=== PATIENT | female | born 1935 | race Caucasian/White ===

== ENCOUNTER 2018-01-10 10:05 | Inpatient (IN) | payer MEDICARE ==
[2018-01-10] MEDS ORDERED: SODIUM CHLORIDE 0.9% 1,000 ML IV STA ×3 (10:15→11:07)
[2018-01-10] MEDS ORDERED: PANTOPRAZOLE 40 MG/10 ML VIAL IVP STA (10:15)
--- NOTE | 2018-01-10 10:20 | ED ---
General Adult HPI - General Stated complaint: altered mental status Time Seen by Provider: 01/10/18 10:07 Source: patient, EMS, RN notes reviewed Mode of arrival: EMS Limitations: altered mental status, physical limitation - History of Present Illness Initial comments: Patient is a pleasant 82-year-old female presenting to the emergency department by EMS for concerns for GI bleed. Patient reportedly has not gotten up and past several days and has not been talking much. Patient has been having rectal bleeding. Patient is also been vomiting. Patient is a very poor historian. Patient does admit to having some abdominal discomfort and vomiting. Patient is unable to describe type vomit. Patient is unaware of any rectal bleeding. Patient is unclear if her abdomen is distended or not. - Related Data Home Medications Medication Instructions Recorded Confirmed No Known Home Medications 01/10/18 01/10/18 Allergies Allergy/AdvReac Type Severity Reaction Status Date / Time No Known Allergies Allergy Unverified 01/10/18 11:15 Review of Systems ROS Statement: Those systems with pertinent positive or pertinent negative responses have been documented in the HPI. ROS Other: All systems not noted in ROS Statement are negative. Limitations: ROS unobtainable due to patients medical condition Gastrointestinal: Reports: abdominal pain, vomiting, hematochezia Past Medical History Past Medical History: Unable to Obtain Past Surgical History: Unable to Obtain Past Drug Use History: None Reported General Exam Limitations: altered mental status General appearance: alert, other (Appearance of black emesis around the mouth and on the shirt) Head exam: Present: atraumatic Eye exam: Present: other (Pale conjunctivae) ENT exam: Present: mucous membranes dry Neck exam: Present: normal inspection Respiratory exam: Present: normal lung sounds bilaterally Cardiovascular Exam: Present: tachycardia, irregular rhythm GI/Abdominal exam: Present: distended, tenderness (Moderate diffuse tenderness) , guarding Rectal exam: Present: bloody stool, other (Patient does have skin breakdown and large hemorrhoid and gross blood present) Extremities exam: Present: normal inspection Neurological exam: Present: alert, altered Expanded Neurological exam: Present: protecting the airway Patient oriented to: Present: person. Absent: place, time Psychiatric exam: Present: normal mood Skin exam: Present: normal color Course Vital Signs 01/10/18 01/10/18 01/10/18 10:32 11:07 11:31 Temperature 100.1 F H Pulse Rate 174 H 171 H 160 H Respiratory 20 18 20 Rate Blood Pressure 101/67 83/68 104/51 O2 Sat by Pulse 97 95 95 Oximetry 01/10/18 01/10/18 12:30 13:00 Temperature 97 F L Pulse Rate 175 H 169 H Respiratory 18 22 Rate Blood Pressure 84/51 O2 Sat by Pulse 98 Oximetry - Reevaluation(s) Reevaluation #1: 01/10/18 13:22 Patient reevaluated and somewhat improved. Patient does have 3 nephews who are present. Family states patient would not want to be resuscitated. They feel patient should be DO NOT RESUSCITATE. Patient does meet sepsis criteria diagnosed at 1322. 01/10/18 13:25 Case was discussed with Dr. Harper, who will admit for hospital call. Surgery and critical care have been paged. 01/10/18 13:35 Case was discussed with Dr. Hair who will look at CT now and will consult on the patient. 01/10/18 14:02 Family was made aware of possible need for surgery and advised to have discussion regarding this. EKG Findings - EKG Comments: EKG Findings:: A. fib with RVR, rate 169. QRS 108. QT 274. QTC 459. Left axis. Normal QRS. Nonspecific ST-T. Procedures - Sepsis Sepsis Focused Exam #1 Time Sepsis Criteria Met: 13:22 Sepsis Focused Exam Date: 01/10/18 Sepsis Focused Exam Time: 14:01 Sepsis Focused Exam Complete: Yes Vital Signs & RN Notes Reviewed: Yes Capillary Refill: < 2 Seconds: Fingers, Toes Peripheral Pulses: Normal: Radial (R), Radial (L) Skin Color: Normal for Patient Respiratory Exam: normal lung sounds Cardiovascular Exam: tachycardia, irregular rhythm Medical Decision Making - Lab Data Result diagrams: 01/10/18 10:31 01/10/18 10:31 Lab Results 01/10/18 01/10/18 01/10/18 Range/Units 10:31 10:31 10:31 WBC 42.0 H* (3.8-10.6) k/uL RBC 4.15 (3.80-5.40) m/uL Hgb 11.1 L (11.4-16.0) gm/dL Hct 33.7 L (34.0-46.0) % MCV 81.1 (80.0-100.0) fL MCH 26.6 (25.0-35.0) pg MCHC 32.8 (31.0-37.0) g/dL RDW 15.4 (11.5-15.5) % Plt Count 242 (150-450) k/uL Neutrophils % (Manual) 88 % Band Neutrophils % 9 % Lymphocytes % (Manual) 3 % Monocytes % (Manual) 1 % Neutrophils # (Manual) 40.70 H (1.3-7.7) k/uL Lymphocytes # (Manual) 1.26 (1.0-4.8) k/uL Monocytes # (Manual) 0.42 (0-1.0) k/uL Nucleated RBCs 0 (0-0) /100 WBC Toxic Granulation Present Toxic Vacuolation Present Poikilocytosis (manual Present Anisocytosis (manual) Present PT (9.0-12.0) sec INR (<1.2) APTT (22.0-30.0) sec Sodium (137-145) mmol/L Potassium (3.5-5.1) mmol/L Chloride (98-107) mmol/L Carbon Dioxide (22-30) mmol/L Anion Gap mmol/L BUN (7-17) mg/dL Creatinine (0.52-1.04) mg/dL Est GFR (CKD-EPI)AfAm (>60 ml/min/1.73 sqM) Est GFR (CKD-EPI)NonAf (>60 ml/min/1.73 sqM) Glucose (74-99) mg/dL Calcium (8.4-10.2) mg/dL Total Bilirubin (0.2-1.3) mg/dL AST (14-36) U/L ALT (9-52) U/L Alkaline Phosphatase (38-126) U/L Ammonia 37 H (<30) umol/L Total Creatine Kinase 264 H (30-135) U/L CK-MB (CK-2) 2.5 H* (0.0-2.4) ng/mL CK-MB (CK-2) Rel Index 0.9 Troponin I 0.065 H* (0.000-0.034) ng/mL Total Protein (6.3-8.2) g/dL Albumin (3.5-5.0) g/dL 01/10/18 01/10/18 Range/Units 10:31 10:31 WBC (3.8-10.6) k/uL RBC (3.80-5.40) m/uL Hgb (11.4-16.0) gm/dL Hct (34.0-46.0) % MCV (80.0-100.0) fL MCH (25.0-35.0) pg MCHC (31.0-37.0) g/dL RDW (11.5-15.5) % Plt Count (150-450) k/uL Neutrophils % (Manual) % Band Neutrophils % % Lymphocytes % (Manual) % Monocytes % (Manual) % Neutrophils # (Manual) (1.3-7.7) k/uL Lymphocytes # (Manual) (1.0-4.8) k/uL Monocytes # (Manual) (0-1.0) k/uL Nucleated RBCs (0-0) /100 WBC Toxic Granulation Toxic Vacuolation Poikilocytosis (manual Anisocytosis (manual) PT 11.7 (9.0-12.0) sec INR 1.2 H (<1.2) APTT 25.9 (22.0-30.0) sec Sodium 141 (137-145) mmol/L Potassium 4.6 (3.5-5.1) mmol/L Chloride 111 H (98-107) mmol/L Carbon Dioxide 14 L (22-30) mmol/L Anion Gap 16 mmol/L BUN 94 H* (7-17) mg/dL Creatinine 6.17 H* (0.52-1.04) mg/dL Est GFR (CKD-EPI)AfAm 7 (>60 ml/min/1.73 sqM) Est GFR (CKD-EPI)NonAf 6 (>60 ml/min/1.73 sqM) Glucose 153 H (74-99) mg/dL Calcium 9.3 (8.4-10.2) mg/dL Total Bilirubin 0.9 (0.2-1.3) mg/dL AST 32 (14-36) U/L ALT 36 (9-52) U/L Alkaline Phosphatase 98 (38-126) U/L Ammonia (<30) umol/L Total Creatine Kinase (30-135) U/L CK-MB (CK-2) (0.0-2.4) ng/mL CK-MB (CK-2) Rel Index Troponin I (0.000-0.034) ng/mL Total Protein 5.8 L (6.3-8.2) g/dL Albumin 2.7 L (3.5-5.0) g/dL - Radiology Data Radiology results: image reviewed (Abdominal x-ray does show numerous dystrophic appearing calcifications in the pelvis. Chest x-ray shows likely right basilar atelectasis. Computed tomography scan of the abdomen and pelvis does have sigmoid diverticulitis with a small amount of free air. No evidence of abscess. Enlargement uterus with calcified mass likely leiomyoma. Bilateral iliac artery aneurysms.) Critical Care Time Critical Care Time: Yes Total Critical Care Time: 43 Disposition Clinical Impression: Acute renal failure (ARF), Perforation of sigmoid colon due to diverticulitis, Gastrointestinal hemorrhage, Atrial fibrillation, Septic shock Disposition: ADMITTED IP TO THIS [facility] Condition: Critical Is patient prescribed a controlled substance at d/c from ED?: No Referrals: None,Stated [Primary Care Provider] - 1-2 days Decision Time: 13:59
--- NOTE | 2018-01-10 11:02 | XR ---
EXAMINATION TYPE: XR chest 1V portable DATE OF EXAM: 01/10/2018 COMPARISON: NONE HISTORY: Weakness, GI bleed, abdominal pain and shortness of breath. TECHNIQUE: Single frontal view of the chest is obtained. FINDINGS: Right basilar airspace disease and right hemithorax volume loss are noted. Given the volum e loss findings are favored to represent atelectasis. Mediastinum is slightly rotated to the right se condary to patient positioning. No pulmonary vascular congestion, pneumothorax or pleural effusion. C ardiomediastinal silhouette is upper limits of normal. Mild multilevel degenerative changes of the th oracic spine and moderate of the shoulders are noted with diffuse osseous demineralization. IMPRESSION: Right basilar airspace disease with associated right hemithorax volume loss, therefore l ikely related to atelectasis. Pneumonia is possible in the appropriate clinical setting.
--- NOTE | 2018-01-10 11:04 | XR ---
EXAMINATION TYPE: XR abdomen 1V DATE OF EXAM: 01/10/2018 10:50 AM CLINICAL HISTORY: Generalized abdominal pain. TECHNIQUE: Single supine KUB image of the abdomen is obtained. COMPARISON: None. FINDINGS: There are large dystrophic calcifications in the pelvis with the most coarse measuring up t o 9.8 cm. Prominent air-filled loop of transverse colon measures up to 5.9 cm and is upper limits of normal but nondilated. No abnormal dilatation of small bowel is seen. Osseous structures are intact w ith mild degenerative changes of the lumbosacral junction and femoral acetabular joints. IMPRESSION: Numerous dystrophic appearing calcifications in the pelvis could relate to degenerative u terine leiomyomas. However the possibility of leiomyosarcoma or calcified retroperitoneal sarcoma is possible and nonemergent enhanced CT abdomen/pelvis is recommended for further evaluation. Nonobstruc tive bowel gas pattern.
[2018-01-10 11:05] LABS: HCT 33.7 % (34.0-46.0); HGB 11.1 gm/dL (11.4-16.0); MCH 26.6 pg (25.0-35.0); MCHC 32.8 g/dL (31.0-37.0); MCV 81.1 fL (80.0-100.0); Mean Platelet Volume 7.8; Platelet Count 242 k/uL (150-450); RBC 4.15 m/uL (3.80-5.40); RDW 15.4 % (11.5-15.5)
[2018-01-10 11:10] LABS: INR 1.2 (<1.2); Partial Thromboplastin Time 25.9 sec (22.0-30.0); Prothrombin Time 11.7 sec (9.0-12.0)
[2018-01-10 11:22] LABS: Albumin 2.7 g/dL (3.5-5.0); Calcium 9.3 mg/dL (8.4-10.2); Potassium 4.6 mmol/L (3.5-5.1); Total Bilirubin 0.9 mg/dL (0.2-1.3); Total Protein 5.8 g/dL (6.3-8.2)
[2018-01-10 11:44] LABS: Band Neutrophils % 9 %; Lymphocytes # (M) 1.26 k/uL (1.0-4.8); Monocytes # (M) 0.42 k/uL (0-1.0); Neutrophils % (M) 88 %; Nucleated Red Blood Cells 0 /100 WBC (0-0); Total Cells Counted 200; Toxic Granulation Present; Toxic Vacuolation Present
[2018-01-10 11:45] LABS: Anisocytosis (M) Present; Poikilocytosis (M) Present
[2018-01-10 11:50] LABS: Creatine Kinase MB 2.5 ng/mL (0.0-2.4); Troponin I 0.065 ng/mL (0.000-0.034)
[2018-01-10] MEDS ORDERED: SODIUM CHLORIDE 0.9% 500 ML IV STA ×2 (12:01→13:10)
--- NOTE | 2018-01-10 13:00 | CT ---
EXAMINATION TYPE: CT abdomen pelvis wo con DATE OF EXAM: 01/10/2018 COMPARISON: None HISTORY: pain CT DLP: 778.2 mGycm Examination of the solid and hollow viscera is limited given the lack of contrast. FINDINGS: LUNG BASES: No evidence for nodule. No evidence for infiltrate. LIVER/GB: Large gallstone in the region of the gallbladder neck with mild gallbladder wall thickening . Correlate with ultrasound. No pericholecystic fluid identified. No space-occupying hepatic lesion. PANCREAS: No pancreatic mass identified. No inflammatory process seen. SPLEEN: No evidence for splenomegaly. No intrasplenic lesions seen. ADRENALS: No adrenal nodules identified. No evidence for thickening. KIDNEYS: Bilateral staghorn calculi without ricardo hydronephrosis. Air within the left-sided renal col lecting system may reflect recent instrumentation. Underlying air producing infection not excluded. F oley balloon catheter is in place. BOWEL: Wall thickening and irregularity involving the distal descending/sigmoid colonic junction with surrounding inflammatory change. Several small foci of free air is seen within the abdomen. No evide nce for abscess at this time. Lymph nodes: No evidence for adenopathy greater than 1 cm. Abdominal aorta: Atheromatous changes seen. Bilateral iliac artery aneurysms measuring 6.5 cm on the right and 5.1 cm on the left. Genital organs: Massive enlargement of the uterus measures 20.5 x 20 cm . Several calcified masses. No distinct ovarian mass. Other: No significant abnormality. IMPRESSION: 1. Suspect perforated sigmoid diverticulitis with a small amount of free air. No evidence for abscess at this time. 2. Massively enlarged uterus is calcified masses likely related to underlying leiomyomatous change. S arcoma cannot be noted. 3. Bilateral iliac artery aneurysms right greater than left. 3. Bilateral staghorn calculi of the renal collecting systems.Air within the left-sided renal collect ing system may reflect recent instrumentation. Underlying air producing infection not excluded.
[2018-01-10] MEDS ORDERED: PIPERACILLIN-TAZOBACTAM 3.375 GM in DEXTROSE/WATER 1 50ML.BAG IVPB STA (13:11)
[2018-01-10] MEDS ORDERED: DILTIAZEM 50 MG in SODIUM CHLORIDE 0.9% 40 ML IV SCH (13:30)
[2018-01-10] MEDS ORDERED: NOREPINEPHRINE 4 MG in SODIUM CHLORIDE 0.9% 250 ML IV SCH (13:30)
[2018-01-10] MEDS ORDERED: NALOXONE 0.4 MG/ML 1 ML VIAL IV PRN (14:03)
[2018-01-10] MEDS: PANTOPRAZOLE 40 MG/10 ML VIAL IV SCH (14:23)
--- NOTE | 2018-01-10 15:22 | P.CNPUL ---
History of Present Illness Consult date: 01/10/18 Reason for consult: other Chief complaint: Respiratory failure History of present illness: Pulmonary consult dated 01/10/2018 This is an 82-year-old female who apparently takes no medications at home and has no past medical history who presented to the emergency department with concerns for GI bleed. The patient apparently came to the emergency department department with dried vomit all over her clothing. She apparently not been taken care of for some time. She was found to be in atrial fibrillation with rapid ventricular response. She was also found on CAT scan to have a perforated diverticulum. The patient has a very high white blood count has profound dehydration with renal failure. She apparently has not been eating or drinking for days. It appeared to the nurses and doctors at whoever was supposed to be taking care of her really was not doing a practically good job. The patient herself is a very poor historian. She does not speak very much at all. I did confirm with the nephew that they would like her to be a DO NOT RESUSCITATE and further, they will likely be a comfort measures only. We are unable to obtain past medical surgical history or any medications the patient was on. The patient essentially nonverbal and can give no history. She apparently is a very druze person and never went to the doctor. Review of Systems ROS unobtainable: due to mental status Past Medical History Past Medical History: No Reported History, Unable to Obtain Additional Past Medical History / Comment(s): Nephews state that pt has never been to a physician. They state they know very little about her health for this reason. What they do know is that her eyesight is poor. She has lately been having pain with bowel movements and her feet have been swelling and has been falling. She also wears disposable underwear d/t urinaty leakage. History of Any Multi-Drug Resistant Organisms: None Reported Past Surgical History: No Surgical Hx Reported Additional Past Surgical History / Comment(s): Pt has never had surgery. Past Anesthesia/Blood Transfusion Reactions: Unable to Obtain Additional Past Anesthesia/Blood Transfusion Reaction / Comment(s): Pt has never had surgery. Smoking Status: Never smoker - Past Family History Mother Family Medical History: Diabetes Mellitus Father Family Medical History: Myocardial Infarction ([place]) Additional Family Medical History / Comment(s): Father of a [place] in his 70s Medications and Allergies Home Medications Medication Instructions Recorded Confirmed Type No Known Home Medications 01/10/18 01/10/18 History Allergies Allergy/AdvReac Type Severity Reaction Status Date / Time No Known Allergies Allergy Unverified 01/10/18 11:15 Physical Exam Osteopathic Statement: *. No significant issues noted on an osteopathic structural exam other than those noted in the History and Physical/Consult. Vitals: Vital Signs Temp Pulse Resp BP Pulse Ox 01/10/18 14:54 97.1 F L 160 H 20 81/46 95 01/10/18 14:48 150 H 18 97/50 95 01/10/18 14:21 164 H 20 100/54 95 01/10/18 13:00 169 H 22 84/51 98 01/10/18 12:30 97 F L 175 H 18 01/10/18 11:31 160 H 20 104/51 95 01/10/18 11:07 171 H 18 83/68 95 01/10/18 10:32 100.1 F H 174 H 20 101/67 97 Intake and Output 01/10/18 01/10/18 01/10/18 06:59 14:59 22:59 Intake Total 7.667 Output Total 2 Balance 5.667 Intake: Intake, IV Titration 7.667 Amount Diltiazem 50 mg In Sodium 7.667 Chloride 0.9% 40 ml @ 5 MG/HR 5 mls/hr IV .Q10H [facility] Rx#:[id number] Output: Urine 2 Uretheral ([place]) 2 Other: Weight 75.296 kg No acute distress, the patient has a blank stare. Not really oriented at all. HEENT examination is grossly unremarkable. Mucous membranes dry. Neck supple. Full range of motion. No adenopathy thyromegaly or neck vein distention. Cardiovascular examination reveals a irregular rhythm and rate. S1-S2 normal. No S3-S4. No distinct murmur. Heart rate 160 bpm Lungs reveal diffuse coarse rhonchi. No wheezes or crackles. Breath sounds equal. She does not take deep breaths. Abdomen mildly distended. Mild tenderness on palpation occasional bowel sounds noted.. Extremities are intact. Some livedo reticularis is noted. No edema. No cyanosis or clubbing. Skin is without rash or lesion. Neurologic examination cannot be assessed. Results - Laboratory Findings CBC and BMP: 01/10/18 10:31 01/10/18 10:31 PT/INR, D-dimer PT 11.7 sec (9.0-12.0) 01/10/18 10:31 INR 1.2 (<1.2) H 01/10/18 10:31 Abnormal lab findings: Abnormal Labs 01/10/18 01/10/18 01/10/18 10:31 10:31 10:31 WBC 42.0 H* Hgb 11.1 L Hct 33.7 L Neutrophils # (Manual) 40.70 H INR Chloride Carbon Dioxide BUN Creatinine Glucose Plasma Lactic Acid Esvin Ammonia 37 H Total Creatine Kinase 264 H CK-MB (CK-2) 2.5 H* Troponin I 0.065 H* Total Protein Albumin 01/10/18 01/10/18 01/10/18 10:31 10:31 10:31 WBC Hgb Hct Neutrophils # (Manual) INR 1.2 H Chloride 111 H Carbon Dioxide 14 L BUN 94 H* Creatinine 6.17 H* Glucose 153 H Plasma Lactic Acid Esvin 2.4 H* Ammonia Total Creatine Kinase CK-MB (CK-2) Troponin I Total Protein 5.8 L Albumin 2.7 L - Diagnostic Findings Chest x-ray: report reviewed (Chest x-ray, labs and medications are reviewed.), image reviewed Assessment and Plan Assessment: Assessment Acute renal failure Atrial fibrillation with rapid ventricular response Acute gastrointestinal hemorrhage Perforated sigmoid diverticulum Profound leukocytosis Anemia secondary to GI bleed Anion gap metabolic acidosis Mild hypoalbuminemia Hypoalbuminemia. Elevated troponin Bilateral staghorn calculi Bilateral iliac artery aneurysms, right greater than left Massively enlarged uterus likely related to underlying leiomyoma Plan: Plan dated 01/10/2018 The patient is now a DO NOT RESUSCITATE. The family did not want any surgery performed. They do not want intubation or mechanical ventilation. Further, after talking to one of her nephews, it was agreed that the patient should be comfort measures only. The patient will not be admitted to the ICU but rather to the general medical floor. The Cardizem will be weaned off. The patient will be made a comfort measures only. Time with Patient: Greater than 30
[2018-01-10] MEDS: SODIUM CHLORIDE 0.9% 1,000 ML IV SCH ×2 (17:22→20:09)
--- NOTE | 2018-01-10 18:04 | P.GSCN ---
History of Present Illness Consult date: 01/10/18 Reason for Consult: Perforated bowel History of present illness: I was contacted by the emergency department today with a consultation for this patient to presented lethargic with hematemesis and rectal bleeding. She was found to be tachycardic and hypotensive. White blood cell count significantly elevated. CAT scan was obtained which showed multiple foci of pneumoperitoneum and suspected diverticulitis. Additionally the patient has a very large uterus with probable calcified fibroids. She also has large iliac aneurysms. The patient's family made it clear they were not interested in surgery or intubation after arrival. Since her admission to the floor her CODE STATUS was changed to comfort care measures only. Review of Systems ROS unobtainable: due to mental status Past Medical History Past Medical History: No Reported History, Unable to Obtain Additional Past Medical History / Comment(s): Nephews state that pt has never been to a physician. They state they know very little about her health for this reason. What they do know is that her eyesight is poor. She has lately been having pain with bowel movements and her feet have been swelling and has been falling. She also wears disposable underwear d/t urinaty leakage. History of Any Multi-Drug Resistant Organisms: None Reported Past Surgical History: No Surgical Hx Reported Additional Past Surgical History / Comment(s): Pt has never had surgery. Past Anesthesia/Blood Transfusion Reactions: Unable to Obtain Additional Past Anesthesia/Blood Transfusion Reaction / Comm: Pt has never had surgery. Smoking Status: Never smoker - Past Family History Mother Family Medical History: Diabetes Mellitus Father Family Medical History: Myocardial Infarction ([place]) Additional Family Medical History / Comment(s): Father of a [place] in his 70s Medications and Allergies Home Medications Medication Instructions Recorded Confirmed Type No Known Home Medications 01/10/18 01/10/18 History Allergies Allergy/AdvReac Type Severity Reaction Status Date / Time No Known Allergies Allergy Unverified 01/10/18 11:15 Surgical - Exam Vital Signs Temp Pulse Resp BP Pulse Ox 100.1 F H 174 H 20 101/67 97 01/10/18 10:32 01/10/18 10:32 01/10/18 10:32 01/10/18 10:32 01/10/18 10:32 Physical exam: General: Well-developed, well-nourished, in mild respiratory distress HEENT: Normocephalic, sclerae nonicteric Abdomen: Distended with diffuse tenderness Extremities: Mild edema Neuro: Confused somewhat lethargic Results - Labs 01/10/18 10:31 01/10/18 10:31 Abnormal Lab Results - Last 24 Hours (Table) 01/10/18 01/10/18 01/10/18 Range/Units 10:31 10:31 10:31 WBC 42.0 H* (3.8-10.6) k/uL Hgb 11.1 L (11.4-16.0) gm/dL Hct 33.7 L (34.0-46.0) % Neutrophils # (Manual) 40.70 H (1.3-7.7) k/uL INR (<1.2) Chloride (98-107) mmol/L Carbon Dioxide (22-30) mmol/L BUN (7-17) mg/dL Creatinine (0.52-1.04) mg/dL Glucose (74-99) mg/dL Plasma Lactic Acid Esvin (0.7-2.0) mmol/L Ammonia 37 H (<30) umol/L Total Creatine Kinase 264 H (30-135) U/L CK-MB (CK-2) 2.5 H* (0.0-2.4) ng/mL Troponin I 0.065 H* (0.000-0.034) ng/mL Total Protein (6.3-8.2) g/dL Albumin (3.5-5.0) g/dL 01/10/18 01/10/18 01/10/18 Range/Units 10:31 10:31 10:31 WBC (3.8-10.6) k/uL Hgb (11.4-16.0) gm/dL Hct (34.0-46.0) % Neutrophils # (Manual) (1.3-7.7) k/uL INR 1.2 H (<1.2) Chloride 111 H (98-107) mmol/L Carbon Dioxide 14 L (22-30) mmol/L BUN 94 H* (7-17) mg/dL Creatinine 6.17 H* (0.52-1.04) mg/dL Glucose 153 H (74-99) mg/dL Plasma Lactic Acid Esvin 2.4 H* (0.7-2.0) mmol/L Ammonia (<30) umol/L Total Creatine Kinase (30-135) U/L CK-MB (CK-2) (0.0-2.4) ng/mL Troponin I (0.000-0.034) ng/mL Total Protein 5.8 L (6.3-8.2) g/dL Albumin 2.7 L (3.5-5.0) g/dL Diabetes panel 01/10/18 Range/Units 10:31 Sodium 141 (137-145) mmol/L Potassium 4.6 (3.5-5.1) mmol/L Chloride 111 H (98-107) mmol/L Carbon Dioxide 14 L (22-30) mmol/L BUN 94 H* (7-17) mg/dL Creatinine 6.17 H* (0.52-1.04) mg/dL Glucose 153 H (74-99) mg/dL Calcium 9.3 (8.4-10.2) mg/dL AST 32 (14-36) U/L ALT 36 (9-52) U/L Alkaline Phosphatase 98 (38-126) U/L Total Protein 5.8 L (6.3-8.2) g/dL Albumin 2.7 L (3.5-5.0) g/dL Calcium panel 01/10/18 Range/Units 10:31 Calcium 9.3 (8.4-10.2) mg/dL Albumin 2.7 L (3.5-5.0) g/dL Pituitary panel 01/10/18 Range/Units 10:31 Sodium 141 (137-145) mmol/L Potassium 4.6 (3.5-5.1) mmol/L Chloride 111 H (98-107) mmol/L Carbon Dioxide 14 L (22-30) mmol/L BUN 94 H* (7-17) mg/dL Creatinine 6.17 H* (0.52-1.04) mg/dL Glucose 153 H (74-99) mg/dL Calcium 9.3 (8.4-10.2) mg/dL Adrenal panel 01/10/18 Range/Units 10:31 Sodium 141 (137-145) mmol/L Potassium 4.6 (3.5-5.1) mmol/L Chloride 111 H (98-107) mmol/L Carbon Dioxide 14 L (22-30) mmol/L BUN 94 H* (7-17) mg/dL Creatinine 6.17 H* (0.52-1.04) mg/dL Glucose 153 H (74-99) mg/dL Calcium 9.3 (8.4-10.2) mg/dL Total Bilirubin 0.9 (0.2-1.3) mg/dL AST 32 (14-36) U/L ALT 36 (9-52) U/L Alkaline Phosphatase 98 (38-126) U/L Total Protein 5.8 L (6.3-8.2) g/dL Albumin 2.7 L (3.5-5.0) g/dL Assessment and Plan (1) Perforation of sigmoid colon due to diverticulitis Narrative/Plan: Agree with plans presently. Discussed the case with the patient's nephew Spike. All questions answered. We'll sign off at this point. Please contact if needed. Current Visit: Yes Status: Acute Code(s): K57.20 - DVTRCLI OF LG INT W PERFORATION AND ABSCESS W/O BLEEDING SNOMED Code(s): 1784964422876658
[2018-01-10] MEDS: MORPHINE SULFATE 2 MG/ML SYRINGE IVP PRN ×2 (18:26→22:43)
[2018-01-10] MEDS: PIPERACILLIN-TAZOBACTAM 3.375 GM in DEXTROSE/WATER 1 50ML.BAG IVPB SCH (23:38)
[2018-01-11] MEDS: MORPHINE SULFATE 2 MG/ML SYRINGE IVP PRN ×4 (00:46→09:01)
[2018-01-11] MEDS: SODIUM CHLORIDE 0.9% 1,000 ML IV SCH ×2 (03:22→11:45)
--- NOTE | 2018-01-11 06:33 | HP ---
HISTORY AND PHYSICAL CHIEF COMPLAINTS: GI bleed, abdominal pain, and change in mental status. HISTORY OF PRESENT ILLNESS: This 82-year-old woman with a past medical history of multiple medical problems including poor eyesight otherwise abdominal pain and not being followed by any primary physician in the outpatient setting was taken to [facility] with complaints of abdominal pain and as well as GI bleed. The patient also had some change in mental status also. In the ER, the patient had abdomen and pelvis CAT scan, which showed suspected perforated sigmoid diverticulitis with free air and a massively enlarged uterus with calcified mass related to underlying leiomyomatous changes, bilateral iliac artery aneurysms and bilateral staghorn calculus also. The patient was seen by Dr. Rajput and Dr. Jimenez and the family wanted no surgical intervention. A conservative line of management and comfort measures are being pursued at this time. The patient is started on broad-spectrum IV antibiotics empirically. Patient also started on morphine p.r.n. There is no history of trauma. PAST MEDICAL HISTORY: History of poor eyesight, abdominal pain as mentioned earlier. Otherwise, no significant illness. MEDICATIONS: Medications prior to admission none. ALLERGIES: None. Family history, social history and review of systems could not be taken because the patient is stuporous currently. PHYSICAL EXAMINATION: Pulse is 160 irregular, blood pressure is 95/51, respiration 20, temperature 97.1, pulse ox 94% on 4 L. HEENT is conjunctivae normal. Oral mucosa moist. Neck is no jugular venous distention. No carotid bruit. No lymph node enlargement. CARDIOVASCULAR: S1 and S2 muffled. RESPIRATORY: Breath sounds diminished at the bases. A few scattered rhonchi and crackles. ABDOMEN: Soft. Diffuse distention. Diffuse tenderness present. No guarding. No rigidity. Bowel sounds diminished. LEGS: No edema, no swelling. NERVOUS SYSTEM: Higher functions as mentioned earlier. Moves all 4 limbs. Diffusely weak. A full exam cannot be carried out. LYMPHATICS: No lymphadenopathy of the neck, axillae or groin. SKIN: No ulcer, rash or bleeding. JOINTS: No active deforming arthropathy. LABS: WBC 42, hemoglobin 11.1. INR 1.2 and creatinine 6.17. CK-MB 0.5. Troponin 0.065. ASSESSMENT: 1. Acute sigmoid diverticulitis and perforation with possible peritonitis and sepsis. 2. Change in mental status, metabolic encephalopathy secondary to sepsis. 3. Increased WBC. 4. Acute renal failure possibly acute tubular necrosis, prerenal factors. 5. Lactic acidemia. 6. Increased random blood sugar. 7. Indeterminate troponin 0.065. 8. NO CODE, NO CPR, NO VENT. RECOMMENDATIONS AND DISCUSSION: This 82-year-old woman presented with multiple complex medical issues, will monitor the patient closely. Continue the current medications. Continue symptomatic treatment. Will continue with morphine. As mentioned earlier, the patient's family did not want to proceed with any definite surgical procedure which will carry an extremely high risk in this elderly individual with multiple complex medical issues. The abdomen is distended and as the patient is still having some pain, I would recommend increase the morphine to every q.2 hours and if the patient requires more morphine, I would also recommend morphine drip at this point. Otherwise, continue the rest of the medications. Prognosis is extremely guarded because of multiple complex medical issues. Further recommendations to follow. BRETT / CARLEYN: [id number] / CLAUDE
[2018-01-11 07:16] VITALS: BP 93/60; PULSE 101; RESP 24; TEMP 98.4
[2018-01-11 09:29] LABS: Basophils % (A) 0 %; Eosinophils % (A) 0 %; HCT 31.7 % (34.0-46.0); HGB 9.9 gm/dL (11.4-16.0); Hypochromasia Moderate; Lymphocytes # (A) 0.8 k/uL (1.0-4.8); Lymphocytes % (A) 3 %; MCH 26.5 pg (25.0-35.0); MCHC 31.1 g/dL (31.0-37.0); MCV 85.2 fL (80.0-100.0); Mean Platelet Volume 7.5; Monocytes # (A) 0.3 k/uL (0-1.0); Monocytes % (A) 1 %; Neutrophils # (A) 26.9 k/uL (1.3-7.7); Neutrophils % (A) 96 %; Platelet Count 178 k/uL (150-450); RBC 3.72 m/uL (3.80-5.40); RDW 15.5 % (11.5-15.5)
[2018-01-11 09:34] LABS: WBC 28.1 k/uL (3.8-10.6)
[2018-01-11 09:57] LABS: Albumin 2.3 g/dL (3.5-5.0); Calcium 9.1 mg/dL (8.4-10.2); Magnesium 1.9 mg/dL (1.6-2.3); Phosphorus 6.2 mg/dL (2.5-4.5); Potassium 4.8 mmol/L (3.5-5.1); Total Bilirubin 0.6 mg/dL (0.2-1.3); Total Protein 5.1 g/dL (6.3-8.2)
[2018-01-11] MEDS: PANTOPRAZOLE 40 MG/10 ML VIAL IV SCH (09:57)
[2018-01-11] MEDS: PIPERACILLIN-TAZOBACTAM 3.375 GM in DEXTROSE/WATER 1 50ML.BAG IVPB SCH (10:44)
--- NOTE | 2018-01-11 22:34 | DS ---
DISCHARGE SUMMARY FINAL DIAGNOSES: 1. Acute sigmoid diverticulitis with perforation, with possible peritonitis and sepsis. 2. Change in mental status, metabolic encephalopathy secondary to sepsis. 3. Increased WBC. 4. Acute renal failure, possible acute tubular necrosis. Prerenal factors. 5. Lactic acidemia. 6. Increase random blood sugar. 7. Indeterminate troponin 0.06. 8. NO CODE, NO CPR, NO VENT. 9. Comfort measures. DISCHARGE DISPOSITION: The patient is being discharged in stable condition with guarded prognosis HISTORY OF PRESENT ILLNESS: This 82-year-old woman with past medical history of abdominal pain, sigmoid diverticulitis, perforation and peritonitis and sepsis. The patient's condition extremely grave and the family decided not to proceed with any aggressive measures and the patient comfort measures were continued at this time. Otherwise, the patient being transition to inpatient hospice at this time. See orders for further details. The prognosis remained extremely guarded throughout the hospital stay. 1. Guarded throughout the hospital stay next present complication office thank. BRETT / MAXIMINO: [id number] / CLAUDE
--- NOTE | 2018-01-12 15:02 | DS ---
DISCHARGE SUMMARY SUMMARY: The primary cause of is: 1. Acute sigmoid diverticulitis with bowel perforation with peritonitis and sepsis. OTHER DIAGNOSES: 1. Change in mental status, metabolic encephalopathy secondary to sepsis. 2. Increased WBC. 3. Acute renal failure possible acute tubular necrosis prerenal factors. 4. Lactic acidemia. 5. Increased random blood sugar. 6. Indeterminate troponin. 7. NO CODE, NO CPR, NO VENT. 8. Comfort measures and hospice. HISTORY OF PRESENT ILLNESS: This 82-year-old woman with no significant past medical history, was admitted with acute sigmoid diverticulitis with bowel perforation with peritonitis and sepsis. The patient's condition was extremely grave and but however the family decided against the surgical intervention, treated symptomatically but because of lack of improvement, the case was discussed with the family at length and the family decided to go with comfort measures. Hospice was consulted and the patient succumbed to her above multiple medical issues as mentioned above. The prognosis remained extremely guarded throughout hospitalization. Please refer to the multiple consultations and progress notes and staff notes for further information. MMODL / IJN: [id number] /
== END 2018-01-11 12:10 | disposition hospice, inpatient (51) | DRG 871 ==
LOC: EC 10:05 → 6ICU 14:03 → 4MS4W 15:41
PROVIDERS: ADMIT Internal Medicine; ATTEND Internal Medicine
DX: A41.9 Sepsis, unspecified organism (principal); N17.0 Acute kidney failure with tubular necrosis; R65.21 Severe sepsis with septic shock; G93.41 Metabolic encephalopathy; J96.90 Respiratory failure, unspecified, unspecified whether with hypoxia or hypercapnia; K57.21 Diverticulitis of large intestine with perforation and abscess with bleeding; E87.2 Acidosis; Z66 Do not resuscitate; Z51.5 Encounter for palliative care; E88.09 Other disorders of plasma-protein metabolism, not elsewhere classified; I48.91 Unspecified atrial fibrillation; E86.0 Dehydration; I72.3 Aneurysm of iliac artery; K66.8 Other specified disorders of peritoneum; D50.0 Iron deficiency anemia secondary to blood loss (chronic); D25.9 Leiomyoma of uterus, unspecified; R77.9 Abnormality of plasma protein, unspecified; N20.0 Calculus of kidney; Z83.3 Family history of diabetes mellitus; Z82.49 Family history of ischemic heart disease and other diseases of the circulatory system
CPT/HCPCS: 36415; 51702; 71045; 74018; 74176; 80053; 82140; 82550; 82553; 83605; 83735; 84100; 84484; 85025; 85610; 85730; 87040; 87077; 87186; 93005; 96361; 96365; 96366; 96368; 96375; 99291

== ENCOUNTER 2018-01-11 11:49 | Inpatient (IN) | payer MEDICAID, MEDICARE ==
[2018-01-11] MEDS ORDERED: LORazepam 2 MG/ML INJ IV PRN (11:59)
[2018-01-11] MEDS ORDERED: ONDANSETRON 4 MG/2 ML VIAL IVP PRN (11:59)
[2018-01-11] MEDS ORDERED: ACETAMINOPHEN SUPPOSITORY 650 MG SUPP RECTAL PRN (11:59)
[2018-01-11] MEDS ORDERED: SCOPOLAMINE 1.5MG/72HR PATCH TRANSDERM PRN (12:00)
[2018-01-11] MEDS ORDERED: MORPHINE SULFATE (100 MG/2 ML) 100 MG in SODIUM CHLORIDE 0.9% 100 ML IV SCH (12:30)
[2018-01-11 13:32] VITALS: BMI 26.7
[2018-01-11] MEDS: MORPHINE SULFATE 2 MG/ML SYRINGE IV PRN (18:21)
[2018-01-11 22:51] VITALS: PULSE 109; RESP 16
[2018-01-12] MEDS: MORPHINE SULFATE 2 MG/ML SYRINGE IV PRN (00:12)
== END 2018-01-12 07:15 | disposition expired | DRG 951 ==
LOC: 4MS4W 12:13
PROVIDERS: ADMIT Hospitalist; ATTEND Hospitalist
DX: Z51.5 Encounter for palliative care (principal); K92.2 Gastrointestinal hemorrhage, unspecified